=== PATIENT | female | born 1975 | race Caucasian/White ===

== ENCOUNTER 2017-07-24 09:45 | Emergency (ER) | payer MEDICAID, OTHER ==
[~2017-07-24] VITALS: Ht 167.6 cm; Wt 85.0 kg
[~2017-07-24 09:45] MED LIST: PRENATAL VIT
[2017-07-24 09:48] VITALS: BP 117/69
== END 2017-07-24 10:52 | disposition home or self-care (01) ==
LOC: ER 10:47
DX: B85.0 Pediculosis due to Pediculus humanus capitis (principal); J30.1 Allergic rhinitis due to pollen
CPT/HCPCS: 99282

== ENCOUNTER 2017-08-07 20:19 | Emergency (ER) | payer MEDICAID ==
[~2017-08-07] VITALS: Ht 162.6 cm; Wt 63.0 kg
[2017-08-07 23:25] VITALS: BP 129/84
== END 2017-08-08 01:15 | disposition home or self-care (01) ==
LOC: ER 21:30
DX: B85.0 Pediculosis due to Pediculus humanus capitis (principal); Z91.018 Allergy to other foods
CPT/HCPCS: 99282

== ENCOUNTER 2018-06-09 12:22 | Emergency (ER) | payer MEDICAID ==
[~2018-06-09] VITALS: Ht 167.6 cm; Wt 82.0 kg
[2018-06-09] MEDS ORDERED: LURA120T PO (12:35)
[2018-06-09 13:00] VITALS: BP 124/76
== END 2018-06-09 14:28 | disposition home or self-care (01) ==
LOC: ER 12:22
DX: T63.441A Toxic effect of venom of bees, accidental (unintentional), initial encounter (principal); J45.909 Unspecified asthma, uncomplicated; F32.9 Major depressive disorder, single episode, unspecified; Z88.8 Allergy status to other drugs, medicaments and biological substances; Y92.89 Other specified places as the place of occurrence of the external cause
CPT/HCPCS: 99283

== ENCOUNTER 2018-11-26 10:23 | Emergency (ER) | payer MEDICAID ==
[~2018-11-26 10:23] MED LIST changes: +LURA120T PO; -PRENATAL VIT
== END 2018-11-26 12:19 | disposition left against medical advice (07) ==
LOC: ER 10:23
DX: M79.673 Pain in unspecified foot (principal); Z53.21 Procedure and treatment not carried out due to patient leaving prior to being seen by health care provider